=== PATIENT | male | born 1955 | race Caucasian/White ===

== ENCOUNTER 2017-02-10 23:01 | Emergency (ER) | payer MEDICARE, OTHER ==
[~2017-02-10] VITALS: Ht 177.8 cm; Wt 113.4 kg
[2017-02-10 23:37] LABS: BASO # 0.1 x10^3/uL (0.0-0.2); BASO % 1 % (0-3); EOS % 4 % (0-3); HEMATOCRIT 33.3 % (39.0-53.0); HEMOGLOBIN 10.8 g/dL (13.0-17.5); LYMPH # 0.6 x10^3/uL (1.0-4.8); LYMPH % 7 % (24-48); MEAN CORPUSCULAR HEMOGLOBIN 28 pg (25-35); MEAN CORPUSCULAR HGB CONC 32 g/dL (31-37); MEAN CORPUSCULAR VOLUME 88 fL (79-100); MONO % 9 % (0-9); NEUT % 80 % (31-73); PLATELET COUNT 291 x10^3/uL (140-400); RED CELL DISTRIBUTION WIDTH 16.3 % (11.5-14.5)
[2017-02-10 23:48] LABS: CALCIUM 8.7 mg/dL (8.5-10.1); CREATININE 5.6 mg/dL (0.7-1.3); GFR 10.4; POTASSIUM 3.4 mmol/L (3.5-5.1)
--- NOTE | 2017-02-11 00:59 | PHYS DOC ---
Past Medical History Past Medical History: Diabetes-Type II, Renal Failure, Other Additional Past Medical Histor: HIGH PHOSPHORUS Past Surgical History: Other Additional Past Surgical Histo: URETHRA Alcohol Use: None Drug Use: None Adult General Chief Complaint Chief Complaint: HYPOGLYCEMIA HPI HPI Patient is a 61 year old male who presents with hypoglycemia. Patient was staying with his family at the [facility] and had given himself an insulin bolus from his insulin pump in anticipation of eating some pizza. However he did not eat any pizza. He then became lethargic per family, who checked his fingerstick which was 26. They gave him oral glucose, applesauce, juice and called EMS. EMS reports his fingerstick was 32 on their arrival. He was given an amp of D50, which raised it up to 140. On arrival to ED, patient more awake than he was and denies any complaints other than fatigue. His disconnected the insulin pump prior to him coming to the ED. Review of Systems Review of Systems Constitutional: Lethargy per family. Denies fever or chills Eyes: Denies change in visual acuity or eye pain HENT: Denies nasal congestion or sore throat Respiratory: Denies cough or shortness of breath Cardiovascular: Denies chest pain GI: Denies abdominal pain, nausea, vomiting, bloody stools or diarrhea : Denies dysuria or hematuria Musculoskeletal: Denies back pain or joint pain Integument: Denies rash or skin lesions Neurologic: Denies headache, focal weakness or sensory changes Allergies Allergies Allergies Coded Allergies Type Severity Reaction Last Updated Verified heparin Allergy Intermediate 02/10/17 Yes Physical Exam Physical Exam Constitutional: Well developed, well nourished, no acute distress, non-toxic appearance HENT: Normocephalic, atraumatic, bilateral external ears normal Eyes: PERRL, EOMI, conjunctiva normal, no discharge Neck: Normal range of motion, no stridor Cardiovascular: Heart rate normal, regular rhythm, murmur noted Lungs & Thorax: Bilateral breath sounds clear to auscultation Abdomen: Bowel sounds normal, soft, non-distended, no TTP Skin: Warm, dry, no erythema, no rash Extremities: No obvious deformity Neurologic: Mild somnolence but easily arousable, oriented X 3, GCS 15, CN II- XII grossly intact, strength intact and symmetrical throughout, sensation to light touch intact throughout Current Patient Data Vital Signs Vital Signs Date Time Temp Pulse Resp B/P Pulse Ox O2 Delivery O2 Flow Rate FiO2 02/11/17 01:10 66 145/68 93 Room Air 02/10/17 23:16 96.7 18 96.7 Lab Values Laboratory Tests Test 02/10/17 23:09 02/10/17 23:10 02/10/17 23:44 02/11/17 00:47 Glucose (Fingerstick) 83mg/dL (70-99) 107mg/dL (70-99) H 140mg/dL (70-99) H White Blood Count 10.0x10^3/uL (4.0-11.0) Red Blood Count 3.80x10^6/uL (4.30-5.70) L Hemoglobin 10.8g/dL (13.0-17.5) L Hematocrit 33.3% (39.0-53.0) L Mean Corpuscular Volume 88fL (79-100) Mean Corpuscular Hemoglobin 28pg (25-35) Mean Corpuscular Hemoglobin Concent 32g/dL (31-37) Red Cell Distribution Width 16.3% (11.5-14.5) H Platelet Count 291x10^3/uL (140-400) Neutrophils (%) (Auto) 80% (31-73) H Lymphocytes (%) (Auto) 7% (24-48) L Monocytes (%) (Auto) 9% (0-9) Eosinophils (%) (Auto) 4% (0-3) H Basophils (%) (Auto) 1% (0-3) Neutrophils # (Auto) 7.9x10^3uL (1.8-7.7) H Lymphocytes # (Auto) 0.6x10^3/uL (1.0-4.8) L Monocytes # (Auto) 0.9x10^3/uL (0.0-1.1) Eosinophils # (Auto) 0.4x10^3/uL (0.0-0.7) Basophils # (Auto) 0.1x10^3/uL (0.0-0.2) Sodium Level 141mmol/L (136-145) Potassium Level 3.4mmol/L (3.5-5.1) L Chloride Level 98mmol/L (98-107) Carbon Dioxide Level 32mmol/L (21-32) Anion Gap 11 (6-14) Blood Urea Nitrogen 24mg/dL (8-26) Creatinine 5.6mg/dL (0.7-1.3) H Estimated GFR (Cockcroft-Gault) 10.4 Glucose Level 86mg/dL (70-99) Calcium Level 8.7mg/dL (8.5-10.1) Laboratory Tests 02/10/17 23:10 Laboratory Tests 02/10/17 23:10 EKG EKG EKG (my read): sinus rhythm, rate 67, LAD, QTc 489ms, no acute ST changes Radiology/Procedures Radiology/Procedures [] Course & Med Decision Making Course & Med Decision Making Pertinent Labs and Imaging studies reviewed. (See chart for details) Patient is 61-year-old male who presents with hypoglycemia. Apparently due to insulin bolus given without eating anything. Mental status improved by arrival to emergency department. Patient provided with food to eat. Will check basic labs. Basic labs unremarkable except for elevated creatinine (h/o ESRD on dialysis). Repeat blood glucose levels okay. Discussed possibility admission overnight for observation, however patient wants to go home. He will be with family, who can check his glucose level regularly. Patient given instructions for follow-up with PCP as well as strict return precautions should his sugar level dropped again. Patient discharged home. Dragon Disclaimer Dragon Disclaimer This electronic medical record was generated, in whole or in part, using a voice recognition dictation system. Departure Departure Impression: Primary Impression: Hypoglycemia Disposition: 01 HOME, SELF-CARE Condition: IMPROVED Referrals: ISELA GREEN (PCP) Patient Instructions: Hypoglycemia (Low Blood Sugar) Additional Instructions: Thank you for allowing us to provide care today in the Emergency Department. Schedule a follow up appointment with your primary care doctor. Return promptly to the Emergency Department if you develop any new or concerning symptoms, such as another drop in blood glucose level. LISHA LNIDO MD Feb 11, 2017 00:59
--- NOTE | 2017-02-11 01:00 | ACF ---
Admission Forms Criteria DIABETES, HYPOGLYCEMIA Clinical Indications for Admission to Inpatient Care (Place 'X' for any and all applicable criteria): Admission is indicated for ALL of the following (1)(2)(3)(4)(5): [ ]I. Suspected or documented hypoglycemia (plasma glucose less than 50 mg/dL (2.78 mmol/L)) with severe clinical manifestations or issues as indicated by ANY ONE of the following: [ ]a) Altered mental status (eg, coma, confusion) [ ]b) Seizure [ ]c) Ataxia [ ]d) Dysphasia [ ]e) Focal neurologic deficit(6) [ ]f) Severe weakness or fatigue [ ]g) Significant clinical signs or symptoms that do not resolve with treatment [ ]h) Hypoglycemia induced by ANY ONE of the following(7)(8)(9): [ ]i) Sulfonylurea(10) [ ]ii) Long-acting insulin (eg, half-life more than 6 hours ) (11) [ ]II. Management at other levels of care (See General Criteria: Observation Care) is not feasible because of ANY ONE of the following: [ ]a) Condition was not adequately corrected with treatment at other levels of care. [ ]b) Treatment at other levels of care is not appropriate because of condition severity (eg, coma). Extended stay beyond goal length of stay may be needed for(3)(12)(19): [ ]a) Long acting sulfonylurea-inducing hypoglycemia (10) [ ]b) Presentation in coma [ ]c) Identified etiology of hypoglycemia requires ongoing care (eg, infection ) [ ]d) Neurologic deficit [ ]e) Active serious comorbidities (eg, renal failure, heart failure) The original [employer] content created by [employer] has been revised. The portions of the content which have been revised are identified through the use of italic text or in bold, and [employer] [facility] has neither reviewed nor approved the modified material.All other unmodified content is copyright [employer]. Please see references footnoted in the original [employer] edition 2016 DA MENJIVAR Feb 11, 2017 01:00
[2017-02-11 01:10] VITALS: BP 145/68
--- NOTE | 2017-02-11 09:18 | EKG ---
[facility] [address] [place] [address] Test Date: 2017-02-10 Test Time: 23:10:20 Pat Name: ISELA STALLINGS Department: Room: Gender: M Checker In: : 1955 Requested By: LISHA LINDO Order Number: [id number] Reading MD: Brenda Henderson Measurements Intervals [place] Rate: 67 P: 31 MO: 166 QRS: -38 QRSD: 110 T: 37 QT: 460 QTc: 489 Interpretive Statements SINUS RHYTHM NORMAL EKG RI6.01 No previous ECG available for comparison Electronically Signed On 02-12-2017 19:08:14 CDT by Brenda Henderson
== END 2017-02-11 01:18 | disposition home or self-care (01) ==
LOC: ER 23:01
DX: E11.649 Type 2 diabetes mellitus with hypoglycemia without coma (principal); E11.22 Type 2 diabetes mellitus with diabetic chronic kidney disease; N18.6 End stage renal disease; Z79.4 Long term (current) use of insulin; Z99.2 Dependence on renal dialysis; Z88.8 Allergy status to other drugs, medicaments and biological substances
CPT/HCPCS: 36415; 80048; 82947; 85027; 93005; 99285-25